=== PATIENT | female | born 1995 | race Two or more races ===

== ENCOUNTER 2022-08-27 22:26 | Inpatient (IN) | payer OTHER ==
[~2022-08-27] VITALS: Ht 149.9 cm; Wt 63.5 kg
[2022-08-27] MEDS ORDERED: PRENA1 TRUE CO1 EACH (22:34)
[2022-08-29] MEDS ORDERED: WIXELA 100-501 EACH (14:44)
== END 2022-08-30 12:43 | disposition home or self-care (01) | DRG 418 ==
LOC: ER 22:26 → MEDI 08-28 17:14 → SEC-K 08-28 17:14 → MEDI 08-28 17:31
PROVIDERS: Surgery; ADMIT Internal Medicine; ATTEND Internal Medicine
PROC: BW40ZZZ Ultrasonography of Abdomen (ICD-10-PCS; 2022-08-27)
PROC: BF37ZZZ Magnetic Resonance Imaging (MRI) of Pancreas (ICD-10-PCS; 2022-08-28)
PROC: 0WQF4ZZ Repair Abdominal Wall, Percutaneous Endoscopic Approach (ICD-10-PCS; 2022-08-29)
PROC: BF13YZZ Fluoroscopy of Gallbladder and Bile Ducts using Other Contrast (ICD-10-PCS; 2022-08-29)
PROC: 3E0336Z Introduction of Nutritional Substance into Peripheral Vein, Percutaneous Approach (ICD-10-PCS; 2022-08-29)
PROC: 0FT44ZZ Resection of Gallbladder, Percutaneous Endoscopic Approach (ICD-10-PCS; principal; 2022-08-29 16:45)
DX: K80.10 Calculus of gallbladder with chronic cholecystitis without obstruction (principal); K43.6 Other and unspecified ventral hernia with obstruction, without gangrene; K80.50 Calculus of bile duct without cholangitis or cholecystitis without obstruction; Z20.822 Contact with and (suspected) exposure to COVID-19

== ENCOUNTER 2024-08-25 21:07 | Emergency (ER) | payer OTHER ==
[~2024-08-25] VITALS: Ht 149.9 cm; Wt 68.0 kg
[~2024-08-25 21:07] MED LIST: PRENA1 TRUE CO1 EACH; WIXELA 100-501 EACH
[2024-08-25] MEDS ORDERED: KETOROLAC TROMETHAMINE 60 MG VIAL IM STA (23:24)
[2024-08-25] MEDS ORDERED: ACETAMINOPHEN 500 MG GEL..CAP PO STA (23:25)
[2024-08-25] MEDS ORDERED: KETOROLAC TROMETHAMINE 60 MG VIAL IM ONE (23:50)
[2024-08-25] MEDS ORDERED: ACETAMINOPHEN 500 MG GEL..CAP PO ONE (23:50)
== END 2024-08-26 00:22 | disposition home or self-care (01) ==
LOC: ER 21:08
DX: M94.0 Chondrocostal junction syndrome [Tietze] (principal)

== ENCOUNTER 2024-09-09 03:55 | Emergency (ER) | payer OTHER ==
[~2024-09-09] VITALS: Ht 149.9 cm; Wt 68.0 kg
[2024-09-09] MEDS ORDERED: ONDANSETRON HCL 2 MG/ML VIAL IV STA (04:41)
[2024-09-09] MEDS ORDERED: HYOSCYAMINE SULFATE 0.125 MG TAB.SUBL SL STA (04:41)
[2024-09-09] MEDS ORDERED: LACTOBACILLUS ACIDOPHILUS 1 CAP CAP PO STA (04:43)
[2024-09-09] MEDS ORDERED: 0.9 % SODIUM CHLORIDE 1,000 ML IV ONE (04:45)
[2024-09-09] MEDS ORDERED: FAMOTIDINE/PF 20 MG/2 ML VIAL IV PUSH STA (04:46)
[2024-09-09] MEDS ORDERED: ONDANSETRON HCL 2 MG/ML VIAL ONE (04:57)
[2024-09-09] MEDS ORDERED: FAMOTIDINE/PF 20 MG/2 ML VIAL ONE (04:58)
[2024-09-09] MEDS ORDERED: HYOSCYAMINE SULFATE 0.125 MG TAB.SUBL ONE (04:58)
[2024-09-09] MEDS ORDERED: LACTOBACILLUS ACIDOPHILUS 1 CAP CAP PO ONE (04:58)
[2024-09-09 06:48] LABS: HEMOGLOBIN 13.5 g/dL (12.0-15.00); MEAN CELL VOLUME 78.2 fL (80.00-100.00); MEAN CORPUSCULAR HEMOGLOBIN 26.4 pg (27.00-32.0); MEAN CORPUSCULAR HGB CONC 33.8 g/dl (32.0-36.0); PLATELET COUNT 236 K/uL (150-450); RED BLOOD COUNT 5.12 M/uL (4.00-6.00); RED CELL DISTRIBUTION WIDTH 14.4 % (11.5-14.5)
[2024-09-09 06:53] LABS: URINE APPEARANCE Cloudy; URINE BILIRRUBIN Negative (NEGATIVE); URINE BLOOD Negative; URINE COLOR Dark Yellow; URINE GLUCOSE Negative (NEGATIVE); URINE LEUKOCYTE Trace; URINE NITRATE Negative; URINE PROTEIN 30 (NEGATIVE); URINE UROBILINOGEN 0.2 E.U./dl
[2024-09-09 06:55] LABS: URINE BACTERIA 1352.4 uL (0.0-1933); URINE EPITHELIAL CELLS 33.4 uL (0.0-38.8); URINE RBC 16.4 uL (0.0-20.8); URINE WBC 8.2 uL (0.0-23.2)
[2024-09-09 06:59] LABS: URINE CAST 0.73 uL (0.0-1.40); URINE KETONE 40 (NEGATIVE)
[2024-09-09 07:03] LABS: CREATININE SERUM 0.66 mg/dL (0.55-1.02); GFR 105.15; POTASSIUM 4.61 mEq/L (3.5-5.1)
[2024-09-09] MEDS ORDERED: CIPROFLOXACIN IN 5 % DEXTROSE 400 MG/200 ML PIGGYBAG IV ONE ×2 (08:35→08:45)
[2024-09-09] MEDS ORDERED: METRONIDAZOLE/SODIUM CHLORIDE 500 MG/100 ML PIGGYBACK IV ONE ×2 (08:35→08:45)
== END 2024-09-09 13:41 | disposition home or self-care (01) ==
LOC: ER 03:56
PROVIDERS: General Practice
DX: R11.10 Vomiting, unspecified (principal); R19.7 Diarrhea, unspecified

== ENCOUNTER 2025-01-22 23:56 | Emergency (ER) | payer OTHER ==
[~2025-01-22] VITALS: Ht 149.9 cm; Wt 68.0 kg
[2025-01-23] MEDS ORDERED: ACETAMINOPHEN 500 MG GEL..CAP PO STA (04:39)
[2025-01-23] MEDS ORDERED: GUAIFENESIN 200 MG/10 ML BLIST.PACK PO STA (04:39)
[2025-01-23] MEDS ORDERED: ACETAMINOPHEN 500 MG GEL..CAP PO ONE (04:42)
[2025-01-23] MEDS ORDERED: GUAIFENESIN 200 MG/10 ML BLIST.PACK PO ONE (04:42)
[2025-01-23 05:06] LABS: BASO % 0.1 % (0.1-1.2); EOS # 0.00 (0.04-0.54); EOS % 0.0 % (0.7-7.0); LYMPH # 1.30 (1.18-3.74); LYMPH % 18.9 % (19.3-53.1); MEAN PLATELET VOLUME 9.20 fl (9.4-12.4); MONO # 0.91 (0.24-0.82); NEUT # 4.65 (1.56-6.13); NEUT % 67.5 % (34.0-71.1); RED CELL DISTRIBUTION WIDTH 13.0 % (11.6-14.4)
[2025-01-23 05:08] LABS: MONO % 13.2 % (4.7-12.5)
[2025-01-23 05:28] LABS: COVID-19 AG NEGATIVE (NEGATIVE)
[2025-01-23] MEDS ORDERED: PHENAGIL TABLE1 EACH PO (05:51)
[2025-01-23] MEDS ORDERED: OSEL75CA PO (05:51)
[2025-01-23] MEDS ORDERED: DOLOGESIC-DF 51 EACH PO (05:51)
== END 2025-01-23 05:56 ==
LOC: ER 23:56
PROVIDERS: General Practice
DX: J10.1 Influenza due to other identified influenza virus with other respiratory manifestations (principal); R50.9 Fever, unspecified; R51.9 Headache, unspecified; Z20.822 Contact with and (suspected) exposure to COVID-19